=== PATIENT | male | born 1980 | race Caucasian/White ===

== ENCOUNTER 2019-11-14 01:53 | Emergency (ER) | payer OTHER ==
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
[2019-11-14] MEDS ORDERED: IBUPROFEN 600 MG TABLET PO STA (02:16)
[2019-11-14] MEDS ORDERED: ACETAMINOPHEN 500 MG TABLET PO STA (02:17)
--- NOTE | 2019-11-14 02:46 | XRAY Report ---
Reason: Fall, forearm/wrist pain Procedure Date: 11/14/2019 Accession Number: [id number] / [id number] Procedure: XR - Hand 3 View RT CPT Code: Final Report FULL RESULT: EXAM: RIGHT HAND RADIOGRAPHY EXAM DATE: 11/14/2019 02:22 AM. CLINICAL HISTORY: Fall, forearm/wrist pain. COMPARISON: FOREARM RT 11/14/2019 2:02 AM. TECHNIQUE: 3 views. FINDINGS: Bones: Normal. No fractures or bone lesions. Joints: Normal. No subluxations. Soft Tissues: Normal. No soft tissue swelling. IMPRESSION: Normal hand radiography. RADIA
--- NOTE | 2019-11-14 02:46 | XRAY Report ---
Reason: Fall, forearm/wrist pain Procedure Date: 11/14/2019 Accession Number: [id number] / [id number] Procedure: XR - Forearm RT CPT Code: Final Report FULL RESULT: EXAM: RIGHT FOREARM RADIOGRAPHY EXAM DATE: 11/14/2019 02:22 AM. CLINICAL HISTORY: Fall, forearm/wrist pain. COMPARISON: HAND 3 VIEW RT 11/14/2019 1:59 AM. TECHNIQUE: 3 views. FINDINGS: Bones: Normal. No fractures or bone lesions. Joints: Normal. No effusions or subluxations in the visualized wrist or elbow joints. Soft Tissues: Normal. No soft tissue swelling. IMPRESSION: Normal forearm radiography. No fracture. RADIA
[2019-11-14 03:02] VITALS: BP 129/91
== END 2019-11-14 03:02 | disposition home or self-care (01) ==
LOC: ED 01:53
DX: M79.601 Pain in right arm (principal)
CPT/HCPCS: 73090; 73130; 99283; 99284; A9270

== ENCOUNTER 2020-04-20 10:43 | Outpatient (CLI) | payer OTHER | END 2020-04-20 10:44 | disposition home or self-care (01) | LOC: COV 10:43 | PROVIDERS: ATTEND Family Medicine | DX: R05 Cough (principal); Z20.828 Contact with and (suspected) exposure to other viral communicable diseases; R53.83 Other fatigue; R19.7 Diarrhea, unspecified; R09.81 Nasal congestion ==

== ENCOUNTER 2023-01-12 15:54 | Outpatient (CLI) | payer OTHER | END 2023-01-12 15:55 | disposition EMS.NT | LOC: EMS 15:54 | DX: R42 Dizziness and giddiness (principal); R06.00 Dyspnea, unspecified ==

== ENCOUNTER 2023-09-15 07:14 | Outpatient (CLI) | payer OTHER | END 2023-09-15 23:59 | disposition critical access hospital (66) | LOC: EMS 07:14 | DX: M25.512 Pain in left shoulder (principal); R07.9 Chest pain, unspecified | CPT/HCPCS: A0425; A0427 ==

== ENCOUNTER 2023-09-15 08:03 | Emergency (ER) | payer OTHER ==
[2023-09-15 08:16] VITALS: O2SAT 98
--- NOTE | 2023-09-15 08:29 | ED Physician Documentation ---
PD HPI CHEST PAIN - Stated complaint Stated Complaint: CP - Chief complaint Chief Complaint: Cardiac - History obtained from History obtained from: Patient, EMS - History of Present Illness Timing - onset: Yesterday Timing - onset during: Rest Timing - duration: Days Timing - details: Gradual onset, Still present (had gradually gotten to severe, with unrelenting pain left side neck, shoulder anteriorly and around to medial pectoral area.) Quality: Aching, Sharp, Pain. No: Pressure, Tightness Location: Left shoulder/arm, Left neck Radiation: Neck, Left upper extremity (inside left upper arm). No: Abdominal Improved by: No: Rest Worsened by: No: Exertion, Inspiration, Movement, Palpation Associated symptoms: No: Shortness of air, Nausea, Vomiting, Palpitations Recently seen: Not recently seen Review of Systems Constitutional: denies: Fever, Chills Musculoskeletal: reports: Neck pain. denies: Back pain, Extremity pain, Extremity swelling Neurologic: denies: Focal weakness, Numbness, Near syncope, Headache PD PAST MEDICAL HISTORY - Past Medical History Past Medical History: No Musculoskeletal: Other - Past Surgical History Past Surgical History: No - Present Medications Home Medications: Ambulatory Orders Medication Instructions Recorded Confirmed Lidocaine Patch 5% [Lidoderm Patch] 1 patch TOP DAILY PRN #10 patch 09/15/23 Meloxicam [Mobic] 7.5 mg PO BID 10 Days #20 tablet 09/15/23 Tramadol HCl 100 mg PO Q6H PRN #25 tablet 09/15/23 clonazePAM [Clonazepam] 1 mg PO BID PRN 09/15/23 09/15/23 dexAMETHasone [Decadron] 4 mg PO DAILY #5 tablet 09/15/23 - Allergies Allergies/Adverse Reactions: Allergies Allergy/AdvReac Type Severity Reaction Status Date / Time No Known Drug Allergies Allergy Verified 09/15/23 08:12 - Social History Does the pt smoke?: No Smoking Status: Never smoker Does the pt drink ETOH?: No Does the pt have substance abuse?: No - Immunizations Immunizations are current?: Yes - POLST Patient has POLST: No PD ED PE NORMAL - Vitals Vital signs reviewed: Yes - General General: Alert and oriented X 3, Well developed/nourished, Other (appears very uncomfortable in pain left shoulder. ) - Neck Neck: Supple, no meningeal sign, No adenopathy, Other - Cardiac Cardiac: RRR, No murmur - Respiratory Respiratory: No respiratory distress, Clear bilaterally - Abdomen Abdomen: Soft, Non tender, Non distended - Derm Derm: Normal color, Warm and dry, No rash - Extremities Extremities: No edema, No calf tenderness / cord Results - Vitals Vitals: Vital Signs - 24 hr 09/15/23 09/15/23 09/15/23 08:09 10:11 12:00 Temperature 37.2 C Heart Rate 76 72 85 Respiratory 12 18 15 Rate Blood Pressure 136/90 H 166/109 H 158/94 H O2 Saturation 98 98 98 09/15/23 13:21 Temperature Heart Rate 84 Respiratory 14 Rate Blood Pressure 146/80 H O2 Saturation 98 Oxygen O2 Source Room air - EKG (time done) 08:10 EKG releavant findings:: EKG personally interpreted by author of this note. Relevant findings are: Rate: Rate (enter#) (80) Rhythm: NSR [place]: Normal Intervals: Normal [place] QRS: Normal Ischemia: Normal ST segments, ST elevation c/w repol. No: ST elevation c/w ischemia, ST depression Compare to prior EKG: Old EKG unavailable - Labs Labs: Laboratory Tests 09/15/23 09/15/23 08:49 08:49 WBC 8.3 RBC 5.49 Hgb 15.8 Hct 48.4 MCV 88.2 MCH 28.8 MCHC 32.6 RDW 11.8 L Plt Count 338 MPV 9.1 Neut # (Auto) 6.0 Lymph # (Auto) 1.5 [place] # (Auto) 0.6 Eos # (Auto) 0.2 Baso # (Auto) 0.0 Absolute Nucleated RBC 0.00 Nucleated RBC % 0.0 Sodium 143 Potassium 4.0 Chloride 107 Carbon Dioxide 30 Anion Gap 6.0 BUN 11 Creatinine 0.9 Estimated GFR (MDRD) 92 Glucose 102 Calcium 10.2 Total Bilirubin 0.8 AST 24 ALT 25 Alkaline Phosphatase 72 Total Creatine Kinase 161 Troponin I High Sens 2.6 C-Reactive Protein < 0.5 Total Protein 7.1 Albumin 4.7 Globulin 2.4 Albumin/Globulin Ratio 2.0 Lipase 471 H - Rads (name of study) chest xray Relevant Findings:: Prelim report reviewed, EMP independent interpretation of test (no acute process) abd US Relevant Findings:: Prelim report reviewed, Other (US Tech: normal GB and common duct. Normal pancreas. ) PD Medical Decision Making - ED course Complexity details: reviewed results (CXR, ECG, trop and labs are normal. Abd US normal. Labs normal except liapse 471. normal CRP. Unclear the cause of the shoulder pain. Consider nerve root process as is in pattern of C5 nerve dermatome. neuritis, early shingles, or muscular. ), re-evaluated patient (he had had Morphine and Fentanyl [employer] by EMS without any improvement. Given Toradol and Dilaudid here IV without improved. Changed to Ketamine 1.5 mg/kg over 40 minutes. He got feeling strange initially and it was held for few minutes, then resumed and he said quite a bit relieved. ), considered differential (pain is severe and not provoked by movement, palpation, breathing, eating. Not tender to the touch. Has elevated lipase but is not tender in upper abd and no abd pain per se. US without abnormal GB nor bile duct.), d/w patient Drug Therapy Requiring Monitoring for Toxicity: He was given IV Dilaudid Toradol then Ketamine here. Had best improvement with the ketamine slow infusion. He says with prior injuries/etc, he has gotten itchy with hydrocodone and oxycodone, and did best with Tramadol. Can Rx that per pt preference. Departure - Departure Disposition: 01 Home, Self Care Clinical Impression: Elevated lipase Left shoulder pain Qualifiers: Chronicity: acute Qualified Code(s): M25.512 - Pain in left shoulder Condition: Stable Record reviewed to determine appropriate education?: Yes Instructions: ED Chest Pain NonCardiac Follow-Up: Bernie Mccormack ARNP [Primary Care Provider] - Prescriptions: dexAMETHasone [Decadron] 4 mg PO DAILY #5 tablet Lidocaine Patch 5% [Lidoderm Patch] 1 patch TOP DAILY PRN #10 patch PRN Reason: pain Meloxicam [Mobic] 7.5 mg PO BID 10 Days #20 tablet Tramadol HCl 100 mg PO Q6H PRN #25 tablet PRN Reason: Pain 5-7 Comments: It is unclear the cause of your shoulder neck upper chest pain. There is no signs of it being related to heart or lungs with a normal EKG and troponin as well as chest x-ray. It is not particularly provoked by movement of the arm and shoulder so does not sound like rotator cuff. The distribution of the pain is in a nerve root distribution so consider a "pinched nerve" or neuritis. This can be inflammatory or mechanical such as a disc or muscle spasm. At times it can be infectious such as early shingles. You do have an elevation of the lipase which is a marker of pancreatic inflammation. No obvious reasoning for that at this point such as medications or other irritant common irritants. No signs of a bile duct blockage to cause this or gallstones. You do not have any pain or tenderness in the area either so I am more inclined to think some mild inflammation related to foods or medication or even a recent viral illness. Your primary care would likely be able to see you next week and follow-up of this visit. Have them recheck your blood test to see if it is more back to normal. This will be a good follow-up for the pain you are having if any symptoms have changed or such. We will try combination of anti-inflammatories as well as a lidocaine patch. To that add Tylenol every 4-6 hours. Activity as tolerated. Since you have had good effect from tramadol in the past for other conditions and get itchy from some of the common pain pills, I did write you some tramadol to see if that will be helpful for this. I sent your prescriptions to [facility] in [place]. I am prescribing a short course of narcotic pain medication for you. These are potentially dangerous and addictive medications that should be used carefully. These medications may constipate you. Take an [id number] stool softener such as docusate twice daily with plenty of water while taking these medications. If you go 24 hours without a bowel movement, take [id number] MiraLAX, per package instructions. Do not drink or drive while taking these medications. If you received narcotic or sedating medications while in the emergency department do not drive for 24 hours. Store this medication in a safe, secure place and out of reach of children. It is a violation of federal law to give or sell this medication to another person or to use in a manner other than prescribed. The ED will not refill narcotic prescriptions, including prescriptions lost or stolen. You can dispose of unwanted medications at the [facility]'s office or at several pharmacies such as [facility]. Forms: PCP List Discharge Date/Time: 09/15/23 13:22
[2023-09-15] MEDS: KETOROLAC 15 MG/ML VIAL IVP STA (08:46)
[2023-09-15] MEDS: HYDROmorphone 1 MG/ML CARPUJECT IVP STA (08:49)
[2023-09-15 08:54] LABS: BASOPHILS % (AUTO) 0.5 %; EOSINOPHILS # (AUTO) 0.2 10^3/uL (0.0-0.7); EOSINOPHILS % (AUTO) 2.1 %; HCT - HEMATOCRIT 48.4 % (42.0-52.0); HGB - HEMOGLOBIN 15.8 g/dL (14.0-18.0); LYMPHOCYTES # (AUTO) 1.5 10^3/uL (1.5-3.5); LYMPHOCYTES % (AUTO) 17.8 %; MEAN CORPUSCULAR HEMOGLOBIN 28.8 pg (27.0-31.0); MEAN CORPUSCULAR HGB CONC 32.6 g/dL (32.0-36.0); MEAN CORPUSCULAR VOLUME 88.2 fL (80.0-94.0); MEAN PLATELET VOLUME 9.1 fL (7.4-11.4); MONOCYTES # (AUTO) 0.6 10^3/uL (0.0-1.0); MONOCYTES % (AUTO) 7.3 %; NEUTROPHILS % (AUTO) 72.1 %; PLT - PLATELET COUNT 338 10^3/uL (130-450); RED BLOOD COUNT 5.49 10^6/uL (4.70-6.10); RED CELL DISTRIBUTION WIDTH 11.8 % (12.0-15.0); WHITE BLOOD COUNT 8.3 x10^3/uL (4.8-10.8)
--- NOTE | 2023-09-15 09:04 | XRAY Report ---
PROCEDURE: Chest 1V INDICATIONS: Chest Pain TECHNIQUE: One view of the chest was acquired. COMPARISON: None. FINDINGS: Surgical changes and devices: None. Lungs and pleura: No pleural effusions or pneumothorax. Mild diffuse interstitial prominence. Mediastinum: Mediastinal contours appear normal. Heart size is normal. Bones and chest wall: No suspicious bony lesions. Overlying soft tissues appear unremarkable. IMPRESSION: Mild diffuse interstitial prominence. No focal infiltrates. Reviewed by: Tal Becerra MD on 09/15/2023 9:03 AM PDT Approved by: Tal Becerra MD on 09/15/2023 9:03 AM PDT Station ID: [id number]
[2023-09-15 09:10] LABS: ALBUMIN 4.7 g/dL (3.2-5.5); ALKALINE PHOSPHATASE 72 IU/L (42-121); ALT ALANINE AMINOTRANSFERASE 25 IU/L (10-60); AST ASPARTATE AMINOTRANSFERASE 24 IU/L (10-42); BILIRUBIN,TOTAL 0.8 mg/dL (0.2-1.0); BUN - BLOOD UREA NITROGEN 11 mg/dL (6-20); CALCIUM 10.2 mg/dL (8.5-10.3); CARBON DIOXIDE - CO2 30 mmol/L (21-32); CHLORIDE 107 mmol/L (101-111); CK- CREATINE KINASE 161 IU/L (30-223); CREATININE 0.9 mg/dL (0.6-1.3); CRP - C-REACTIVE PROTEIN < 0.5 mg/dL (<0.5); GFR - MDRD 92 (>89); GLUCOSE 102 mg/dL (74-104); LIPASE 471 U/L (11-82); SODIUM 143 mmol/L (135-145); TOTAL PROTEIN 7.1 g/dL (6.4-8.9)
[2023-09-15 09:17] LABS: TROPONIN I HIGH SENSITIVITY 2.6 ng/L (2.3-19.7)
[2023-09-15] MEDS: SODIUM CHLORIDE 0.9% IV STA (10:36)
[2023-09-15] MEDS: KETAMINE IV STA (10:36)
[2023-09-15] MEDS: DEXAMETHASONE 10 MG/ML VIAL IVP STA (10:37)
[2023-09-15] MEDS: LIDOCAINE PATCH 5% TOP STA (10:37)
--- NOTE | 2023-09-15 12:18 | Ultrasound Report ---
PROCEDURE: Abdomen Limited INDICATIONS: left chest pain, elevated lipase. TECHNIQUE: Real-time focused scanning was performed of the abdomen, with image documentation. COMPARISONS: None. FINDINGS: Liver: Liver is normal in size. Mildly echogenic liver parenchyma is seen, no discrete hepatic lesio n. Gallbladder: Multiple nonmobile echogenic foci are seen within the dependent and nondependent portion of gallbladder lumen measures up to 3 x 4 x 3 mm in size. No gallbladder wall thickening. No pericho lecystic fluid or sonographic Castañeda's sign. Biliary ducts: Intrahepatic bile ducts are non-dilated. Extrahepatic bile duct caliber measures tub e mm. Normal is 6-7 mm or less in diameter, or 10 mm or less post-cholecystectomy. Pancreas: Visualized portions of the pancreas are sonographically normal. Right kidney: Normal in size and echotexture. Right kidney measures 11.4 cm long. No hydronephrosis or nephrolithiasis. No solid masses. No complex renal cystic lesions which require follow-up. Aorta: Visualized aorta is normal in caliber at less than 3 cm. IVC: Intrahepatic inferior vena cava is patent. Miscellaneous: No free abdominal fluid. IMPRESSION: 1. Suggestion of tiny adherent stones versus polyp in gallbladder lumen as above. No evidence of acut e cholecystitis. No biliary ductal dilatation. 2. Mild hepatic steatosis, no discrete hepatic lesion. 3. No gross abnormality is seen in pancreas and right kidney. Reviewed by: Warren Johnson MD on 09/15/2023 12:17 PM PDT Approved by: Warren Johnson MD on 09/15/2023 12:17 PM PDT Station ID: [id number]
[2023-09-15] MEDS: traMADol 50 MG TABLET PO STA (12:57)
[2023-09-15 13:31] VITALS: BP 146/80
== END 2023-09-15 13:22 | disposition home or self-care (01) ==
LOC: EDBD → ED 08:03
DX: M25.512 Pain in left shoulder (principal); R74.8 Abnormal levels of other serum enzymes; Z79.899 Other long term (current) drug therapy
CPT/HCPCS: 36415; 71045; 76705; 80053; 82550; 83690; 84484; 85025; 86140; 93005; 96365; 96366; 96375; 99285; A9270; J1170

== ENCOUNTER 2024-03-11 09:46 | Day surgery (SDC) | payer OTHER ==
[2024-03-11] MEDS: LACTATED RINGERS 1,000 ML IV ONE (10:03)
[2024-03-11] MEDS ORDERED: PROPOFOL 500 MG/50 ML 500 MG/50 ML VIAL ONE (10:57)
[2024-03-11] MEDS ORDERED: MIDAZOLAM 2 MG/2 ML VIAL ONE (10:58)
[2024-03-11] MEDS ORDERED: LIDOCAINE-MPF 2% 5 ML VIAL ONE (10:58)
--- NOTE | 2024-03-11 11:11 | ANESTHESIA ---
Pre-Anesthesia VS, & Labs - Diagnosis positive cologuard - Procedure colonoscopy Vital Signs: Temp Pulse Resp BP Pulse Ox O2 Flow Rate 36.8 C 78 11 L 143/94 H 100 03/11/24 10:03 03/11/24 10:03 03/11/24 10:03 03/11/24 10:03 03/11/24 10:03 Height: 6 ft 1 in Weight (kg): 78 kg Body Mass Index: 22.6 BMI Classification: Normal - NPO Other (prep as directed) Home Medications and Allergies Home Medications: Ambulatory Orders Diazepam [Valium] 2.5 mg PO DAILY 03/08/24 Methylphenidate HCl [Concerta] See Rx Instructions .ROUTE .COMPLEX 03/08/24 clonazePAM [Clonazepam] 1 mg PO BID PRN 09/15/23 Diazepam [Valium] 2.5 mg PO DAILY 03/08/24 Methylphenidate HCl [Concerta] See Rx Instructions .ROUTE .COMPLEX 03/08/24 Allergies/Adverse Reactions: Allergies Allergy/AdvReac Type Severity Reaction Status Date / Time No Known Drug Allergies Allergy Verified 09/15/23 08:12 Anes History & Medical History - Anesthetic History Anesthesia Complications: reports: No previous complications - Medical History Cardiovascular: reports: None Pulmonary: reports: Shortness of breath Gastrointestinal: reports: GI bleed Urinary: reports: None Musculoskeletal: reports: Osteoarthritis Endocrine/Autoimmune: reports: None Skin: reports: None Smoking Status: Current some day smoker Psychosocial: reports: Anxiety Exam General: Alert, Oriented x3 Dental: WNL Mouth Opening: Greater than 4 Fingerbreadths Neck Mobility: Normal Mallampati classification: II Thyromental Distance: greater than 6 cm Respiratory: Lungs clear Cardiovascular: Regular rate Plan Anesthesia Type: Total IV Consent for Procedure(s) Verified and Reviewed: Yes Code Status: Attempt Resuscitation ASA classification: 2-Mild systemic disease Is this case an emergency?: No
[2024-03-11] MEDS: LACTATED RINGERS 200 ML IV ONE (12:10)
[2024-03-11 12:46] VITALS: BP 131/84; O2SAT 100
--- NOTE | 2024-03-11 15:05 | ANESTHESIA POST OP EVALUATION ---
Anesthesia Post Eval - Post Anesthesia Eval Vitals: Last Vital Signs Temp 36.2 C L 03/11/24 12:43 Pulse 71 03/11/24 12:43 Resp 16 03/11/24 12:43 BP 131/84 H 03/11/24 12:43 Pulse Ox 100 03/11/24 12:43 O2 Flow Rate CV Function Including HR & BP: Stable Pain Control: Satisfactory Nausea & Vomiting: Negative Mental Status: Baseline Respiratory Status: Airway Patent Hydration Status: Satisfactory Anesthesia Complications: None
== END 2024-03-11 09:47 | disposition home or self-care (01) ==
LOC: SDS 09:46
PROVIDERS: ATTEND Surgery
PROC: 0DBN8ZZ Excision of Sigmoid Colon, Via Natural or Artificial Opening Endoscopic (ICD-10-PCS; 2024-03-11)
PROC: 0DBP8ZZ Excision of Rectum, Via Natural or Artificial Opening Endoscopic (ICD-10-PCS; principal; 2024-03-11 11:00)
DX: R19.5 Other fecal abnormalities (principal); K63.5 Polyp of colon; K62.1 Rectal polyp; K64.1 Second degree hemorrhoids; F17.200 Nicotine dependence, unspecified, uncomplicated
CPT/HCPCS: 45380; 45385; J7120